=== PATIENT | female | born 1990 | race African-American/Black ===

== ENCOUNTER 2018-11-27 01:08 | Emergency (ER) | payer MEDICAID ==
[~2018-11-27] VITALS: Ht 170.2 cm; Wt 77.7 kg
[2018-11-27 01:13] VITALS: BP 133/73
[2018-11-27] MEDS ORDERED: ondansetron 4mg rapidly disintigrating tab PO ONE (01:30)
[2018-11-27] MEDS ORDERED: normal saline 1000ml 1,000 ML IV ONE (02:05)
[2018-11-27] MEDS ORDERED: ondansetron/PF 4mg/2ml inj IV ONE (02:10)
== END 2018-11-27 03:55 | disposition home or self-care (01) ==
LOC: ER 01:08
DX: F10.129 Alcohol abuse with intoxication, unspecified (principal); K21.9 Gastro-esophageal reflux disease without esophagitis; Y90.9 Presence of alcohol in blood, level not specified
CPT/HCPCS: 96374; 99284; J2405; J7030